=== PATIENT | male | born 1940 | race Caucasian/White ===

== ENCOUNTER → 2016-11-18 | Outpatient (CLI) | payer BC ==
[~2016-11-18] MED LIST: ASPEC81 PO; ATOR10TA88 PO; CZR50 PO; FINA5TAB PO; METO50TA7 PO; MULT-506 PO; WARF2TAB PO
--- NOTE | 2016-11-18 10:41 | DIAGNOSTIC IMAGING REPORT ---
LEFT KNEE 3 VIEWS CLINICAL HISTORY: 76 years-old Male presenting with S/P LEFT TKA. TECHNIQUE: Frontal views of the bilateral knees in standing position, crosstable lateral view of the left knee, and bilateral sunrise views of the knees were obtained. COMPARISON: 01/15/2016. 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 Patellar aspect of the patellofemoral articulation has been resurfaced in the interim. No hardware complication. Joint space is preserved. No acute fracture or malalignment. No large effusion. Atherosclerosis. IMPRESSION: 1. Expected postsurgical changes of bilateral total knee arthroplasties with patellar resurfacing. No hardware complication or acute osseous injury. Electronically signed by: Rg Garcia M.D. 11/18/2016 10:40 AM Dictated Date/Time: 11/18/2016 10:37 AM
== END | disposition home or self-care (01) ==
LOC: C.RDSM 13:26
PROVIDERS: ATTEND Physician Assistant
DX: Z96.652 Presence of left artificial knee joint (principal)

== ENCOUNTER → 2017-11-24 | Outpatient (CLI) | payer BC ==
[~2017-11-24] MED LIST changes: +ATOR10TA82 PO; -ATOR10TA88 PO; -METO50TA7 PO; +METO50TA8 PO
--- NOTE | 2017-11-24 15:27 | DIAGNOSTIC IMAGING REPORT ---
LEFT KNEE 3 VIEWS HISTORY: LEFT KNEE PAIN COMPARISON: Left knee 11/18/2016. FINDINGS: There again noted bilateral total knee arthroplasties. The hardware is intact. No abnormal periprosthetic lucency. No fracture or dislocation. No significant knee effusion. Soft tissue thickening within the left patella ligament remains unchanged. This may be related to the postoperative change. IMPRESSION: 1. Bilateral total knee arthroplasties. The hardware is intact. 2. No fracture or dislocation within the left knee. 3. No change in the thickening of the patellar ligament. This may related to the postoperative change. Electronically signed by: Yuan Ayala M.D. 11/24/2017 3:26 PM Dictated Date/Time: 11/24/2017 3:24 PM
== END | disposition home or self-care (01) ==
LOC: C.RDSM 14:46
PROVIDERS: ATTEND Physician Assistant
DX: M25.562 Pain in left knee (principal); Z96.653 Presence of artificial knee joint, bilateral